=== PATIENT | male | born 1970 | race African-American/Black ===

== ENCOUNTER 2022-02-20 16:23 | Emergency (ER) | payer OTHER ==
[~2022-02-20] VITALS: Ht 180.3 cm; Wt 95.5 kg
[2022-02-20 17:42] LABS: BASOPHILS % (AUTO) 0.7 % (0.0-2.0); HEMOGLOBIN 14.5 g/dL (13.5-17.5); LYMPHOCYTES # (AUTO) 1.6 K/uL (1.0-4.8); LYMPHOCYTES % (AUTO) 24.4 % (22.0-44.0); MEAN CORPUSCULAR HGB CONC 31.6 G/dL (31.0-37.0); MEAN CORPUSCULAR VOLUME 73 fL (80-100); MONOCYTES # (AUTO) 0.5 K/uL (0.1-1.0); MONOCYTES % (AUTO) 7.1 % (2.0-9.0); NEUTROPHILS # (AUTO) 4.4 K/uL (1.8-7.7); NEUTROPHILS % (AUTO) 66.8 % (40.0-70.0); PLATELET COUNT (AUTO) 375 K/uL (150-450); RED BLOOD CELL COUNT(AUTO) 6.33 MIL/uL (4.50-5.90); RED CELL DISTRIBUTION WIDTH 14.9 % (11.5-14.5)
[2022-02-20 17:52] LABS: CALCIUM, TOTAL 9.2 mg/dL (8.8-10.5); CARBON DIOXIDE 30 mmol/L (22-29); CREATININE 0.86 mg/dL (0.60-1.30); GLUCOSE,RANDOM 107 mg/dL (70-110); POTASSIUM 3.9 mmol/L (3.5-5.1); UREA NITROGEN, BLOOD 17 mg/dL (7-18)
[2022-02-20 18:00] LABS: ALANINE AMINOTRANSFERASE 34 U/L (12-78); ALBUMIN 3.4 g/dL (3.4-5.0); ALKALINE PHOSPHATASE 75 U/L (46-116); ASPARTATE AMINOTRANSFERASE 23 U/L (15-37); BILIRUBIN,TOTAL 0.5 mg/dL (0.1-1.0); TOTAL PROTEIN, SERUM 7.5 g/dL (6.4-8.2)
[2022-02-20 18:07] LABS: PROTHROMBIN TIME 10.3 SEC (9.4-11.6)
[2022-02-20 18:10] LABS: ANION GAP 5 mmol/L (8-16); CHLORIDE 101 mmol/L (98-107); SODIUM SERUM 136 mmol/L (136-145)
[2022-02-20 18:12] LABS: GLOMERULAR FILTR. RATE CALC > 60 mL/min (>60)
[2022-02-20] MEDS ORDERED: SODIUM CHLORIDE 0.9% 1,000 ML IV ONE (18:45)
[2022-02-20 18:50] VITALS: BP 158/107
== END 2022-02-20 20:05 | disposition home or self-care (01) ==
LOC: EMS 16:23
DX: F19.10 Other psychoactive substance abuse, uncomplicated (principal); F17.210 Nicotine dependence, cigarettes, uncomplicated
CPT/HCPCS: 71045; 80053; 84484; 85025; 85610; 85730; 93005; 99285; 36415-L1; 36415-TC

== ENCOUNTER 2022-05-15 11:46 | Day surgery (SDC) | payer OTHER ==
[~2022-05-15 11:46] MED LIST: AMLO-257 PO; ASPI-1450 PO; SODIUM CHLORIDE 0.9% 1,000 ML IV ONE; SODIUM CHLORIDE 0.9% 1,000 ML ONE
== END 2022-05-15 12:20 | disposition home or self-care (01) ==
LOC: SURGERY 11:46
PROVIDERS: ATTEND Internal Medicine Gastroenterology
DX: Z12.11 Encounter for screening for malignant neoplasm of colon (principal); Z53.8 Procedure and treatment not carried out for other reasons
CPT/HCPCS: J7030

== ENCOUNTER 2022-06-19 12:12 | Day surgery (SDC) | payer OTHER ==
[~2022-06-19 12:12] MED LIST changes: -ASPI-1450 PO
[2022-06-19] MEDS ORDERED: PROPOFOL 1% 20 ML VIAL IVP ONE (12:13)
[2022-06-19 12:36] LABS: COVID AG,FIA SOURCE NASOPHARYNGEAL
== END 2022-06-19 16:30 | disposition home or self-care (01) ==
LOC: SURGERY 12:12
PROVIDERS: ATTEND Internal Medicine Gastroenterology
DX: Z12.11 Encounter for screening for malignant neoplasm of colon (principal); I10 Essential (primary) hypertension; E78.5 Hyperlipidemia, unspecified; F15.10 Other stimulant abuse, uncomplicated; Z20.822 Contact with and (suspected) exposure to COVID-19; Z79.899 Other long term (current) drug therapy; Z98.890 Other specified postprocedural states; Z83.3 Family history of diabetes mellitus
CPT/HCPCS: 45378; 87426; J2704; J7030; C9803